=== PATIENT | female | born 1970 | race African-American/Black ===

== ENCOUNTER 2017-06-05 09:52 | Outpatient (CLI) | payer OTHER ==
[~2017-06-05 09:52] MED LIST: Iopamidol 370 76% 100 ML VIAL ONE
--- NOTE | 2017-06-05 13:01 | CT ---
CT ABDOMEN AND PELVIS WITH IV CONTRAST: DATE: 06/05/17. HISTORY: Abdominal cramping and constipation. COMPARISON: None available. FINDINGS: There are minimal patchy and reticulonodular densities seen at the posteromedial right lower lobe whi ch could be related to infectious or inflammatory process. There is a questionable subcentimeter nod ular density in the anterior aspect of the right middle lobe, but this may be related to incomplete i maging of a vessel. The liver, spleen, pancreas, bilateral adrenal glands, kidneys, abdominal aorta, urinary bladder, and opacified bowel demonstrate a normal CT appearance. There is a small hiatal hernia present. The appendix is visualized and normal in caliber and filled with gas. There is a left adnexal hypodense cystic lesion measuring 2.6 cm which likely represents a small left ovarian cyst. The right adnexal structures have a normal CT appearance, but there is a trace amount of free fluid in the cul-de-sac, likely physiologic in origin. There is a lobulated appearance of the uterine fundus with a question of an isodense mass within the right aspect uterine fundus which may represent a uterine fibroid. There is decreased attenuation in the region of the cervical canal which may be related to the stage of the patient's menstrual cycle. There is a suggestion of a few Nabothian cysts in the region of the cervix. However, this region i s difficult to evaluate on CT exam. 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 Abdominal aorta is normal in caliber without evidence of aortic dissection. No aortocaval lymphadenopathy is present. Mild degenerative change is seen in the lower lumbar spine. IMPRESSION: 1. Minimal patchy and reticulonodular densities at the posteromedial right lower lobe which may be r elated to infectious or inflammatory process. 2. Small left ovarian cyst. 3. No CT evidence of appendicitis. 4. Small amount of retained fecal material is seen throughout the colon. 5. Probable uterine fibroid. There is decreased attenuation in the region of the endometrial canal which may be related to a stage of the patient's menstrual cycle, although this is not well evaluated on CT exam. POS: [facility]
== END 2017-06-05 09:53 | disposition home or self-care (01) ==
LOC: SCSCT 09:52
PROVIDERS: ATTEND Internal Medicine Gastroenterology
DX: K59.00 Constipation, unspecified (principal); R10.9 Unspecified abdominal pain; R68.81 Early satiety; N83.202 Unspecified ovarian cyst, left side; K76.89 Other specified diseases of liver
CPT/HCPCS: 36415; 74177; 80053; 82150; 83036; 83690; 85025; 85060; 86677